=== PATIENT | male | born 1980 | race Caucasian/White ===

== ENCOUNTER → 2017-01-21 | Outpatient (CLI) | payer BC ==
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
== END ==
LOC: SLEEP 13:48
PROVIDERS: ATTEND Internal Medicine
DX: R06.83 Snoring (principal); I10 Essential (primary) hypertension; F17.200 Nicotine dependence, unspecified, uncomplicated; E66.9 Obesity, unspecified; Z68.36 Body mass index [BMI] 36.0-36.9, adult; Z79.899 Other long term (current) drug therapy
CPT/HCPCS: 99211

== ENCOUNTER 2018-05-11 11:12 | Emergency (ER) | payer BC ==
[2018-05-11] MEDS ORDERED: LIDOCAINE 1% (PF) 10MG/ML VIAL SQ STA (11:53)
[2018-05-11] MEDS ORDERED: DIPH,PERTUS(ACELL)TETVAC-LF 0.5 ML VIAL IM ONE (11:53)
--- NOTE | 2018-05-11 12:06 | ED ---
Wound/Laceration HPI - General Chief Complaint: Wound/Laceration Stated Complaint: laceratyion middle finger rt hand Time Seen by Provider: 05/11/18 11:19 Source: patient, RN notes reviewed, old records reviewed Mode of arrival: ambulatory Limitations: no limitations - History of Present Illness Initial Comments: 2-year-old male is referred him to plan of a laceration of the distal tip of his right middle finger. Patient states that he was working at his car and cut the distal portion of the finger involving the nail. Patient states that he has full range of motion of the DIP. Patient states that his tetanus is likely not up-to-date. He reports that he has normal sensation to the distal fingertip. Patient denies any other signs or symptoms or concerns for injury with associated with laceration. - Related Data Home Medications Medication Instructions Recorded Confirmed Lisinopril [Zestril] 10 mg PO DAILY 11/08/14 05/11/18 Multivitamins, Thera [Multivitamin 1 tab PO DAILY 05/11/18 05/11/18 (formulary)] Previous Rx's Medication Instructions Recorded Acetaminophen-Codeine 300-30mg 1 tab PO Q6H PRN 3 Days #12 tablet 05/11/18 [Tylenol w/codeine #3] Cephalexin [Keflex] 500 mg PO Q6H #40 cap 05/11/18 Allergies Allergy/AdvReac Type Severity Reaction Status Date / Time diphenhydramine HCl Allergy Unknown Verified 05/11/18 11:23 [From Benadryl] Review of Systems ROS Statement: Those systems with pertinent positive or pertinent negative responses have been documented in the HPI. ROS Other: All systems not noted in ROS Statement are negative. Past Medical History Past Medical History: Hypertension Additional Past Medical History / Comment(s): [place] kidney stones History of Any Multi-Drug Resistant Organisms: None Reported Past Surgical History: Ear Surgery, Orthopedic Surgery Past Psychological History: No Psychological Hx Reported Smoking Status: Current every day smoker Past Alcohol Use History: Rare Past Drug Use History: None Reported General Exam - General Exam Comments Initial Comments: 38-year-old male. Alert and oriented. No acute distress. Limitations: no limitations General appearance: alert, in no apparent distress Head exam: Present: atraumatic, normocephalic, normal inspection Eye exam: Present: normal appearance, PERRL, EOMI. Absent: scleral icterus, conjunctival injection, periorbital swelling ENT exam: Present: normal exam, mucous membranes moist Neck exam: Present: normal inspection. Absent: tenderness, meningismus, lymphadenopathy Respiratory exam: Present: normal lung sounds bilaterally. Absent: respiratory distress, wheezes, rales, rhonchi, stridor Cardiovascular Exam: Present: regular rate, normal rhythm, normal heart sounds. Absent: systolic murmur, diastolic murmur, rubs, gallop, clicks GI/Abdominal exam: Present: soft, normal bowel sounds. Absent: distended, tenderness, guarding, rebound, rigid Extremities exam: Present: normal inspection, full ROM, normal capillary refill. Absent: tenderness, pedal edema, joint swelling, calf tenderness Right Upper Arm exam: Present: normal inspection, full ROM Elbow exam: Present: normal inspection, full ROM Forearm Wrist exam: Present: normal inspection, full ROM Hand Wrist exam: Present: full ROM. Absent: normal inspection (Patient has a laceration over the sole middle finger involving the nailbed. Laceration is linear.) Neuro motor exam: Present: wrist extension intact, thumb opposition intact, thumb IP flexion intact, thumb adduction intact, fingers 2-5 abduction intact Vascular: Present: normal capillary refill Back exam: Present: normal inspection Neurological exam: Present: alert, oriented X3, CN II-XII intact Psychiatric exam: Present: normal affect, normal mood Skin exam: Present: warm, dry, intact, normal color. Absent: rash Course Vital Signs 05/11/18 11:14 Temperature 98.3 F Pulse Rate 106 H Respiratory 20 Rate Blood Pressure 129/85 O2 Sat by Pulse 99 Oximetry Disposition Clinical Impression: Open fracture, Finger laceration Disposition: HOME SELF-CARE Condition: Good Instructions: Finger Fracture (ED) Additional Instructions: Patient advised to follow-up with outdoor recreation specialist. Take antibiotic as prescribed. Return to emergency department if any alarming signs or symptoms occur. Prescriptions: Acetaminophen-Codeine 300-30mg [Tylenol w/codeine #3] 1 tab PO Q6H PRN 3 Days # 12 tablet PRN Reason: Pain Cephalexin [Keflex] 500 mg PO Q6H #40 cap Is patient prescribed a controlled substance at d/c from ED?: No Referrals: Yang Enciso MD [Primary Care Provider] - 1-2 days Bebo Claros DO [Doctor of Osteopathic Medicine] - 1-2 days Roberto Simons MD [STAFF PHYSICIAN] - 1-2 days Time of Disposition: 13:29
[2018-05-11] MEDS ORDERED: ceFAZolin 1,000 MG VIAL IM STA (12:25)
--- NOTE | 2018-05-11 12:26 | XR ---
Right hand HISTORY: Laceration, trauma and pain 3 views of the right hand There is a possible comminuted tuft fracture with displacement at the third digit of the right hand. No dislocation. Bone mineralization joint spaces are maintained. IMPRESSION: Third digit fracture
[2018-05-11 13:48] VITALS: BP 111/76; PULSE 87; RESP 18; TEMP 97.1
== END 2018-05-11 13:56 | disposition home or self-care (01) ==
LOC: EC 11:12
DX: S62.632B Displaced fracture of distal phalanx of right middle finger, initial encounter for open fracture (principal); I10 Essential (primary) hypertension; F17.200 Nicotine dependence, unspecified, uncomplicated; Z23 Encounter for immunization; Z79.899 Other long term (current) drug therapy; Z88.8 Allergy status to other drugs, medicaments and biological substances; W26.8XXA Contact with other sharp object(s), not elsewhere classified, initial encounter; Y92.89 Other specified places as the place of occurrence of the external cause; Y93.89 Activity, other specified
CPT/HCPCS: 73130; 90715; 99283; 96372; 90471; J0690; J2001

== ENCOUNTER 2021-08-11 09:08 | Emergency (ER) | payer BC ==
[2021-08-11 09:12] VITALS: RESP 22; TEMP 99.3
[2021-08-11] MEDS ORDERED: SODIUM CHLORIDE 0.9% 1,000 ML IV STA (09:26)
--- NOTE | 2021-08-11 09:29 | ED ---
Abdominal Pain HPI - General Chief Complaint: Abdominal Pain Stated Complaint: right side abd pain Time Seen by Provider: 08/11/21 09:12 Source: patient, RN notes reviewed Mode of arrival: ambulatory Limitations: no limitations - History of Present Illness Initial Comments: This a 41-year-old male presented from tumor and right-sided abdominal pain. Patient states started last day or so. Patient states that intensifying. Patient states that slight nausea with severe vomiting diarrhea constipation no dysuria no hematuria states that history kidney stones does not feel similar. He states primarily in the right lower quadrant no other complaints. - Related Data Home Medications Medication Instructions Recorded Confirmed lisinopriL [Zestril] 10 mg PO DAILY 11/08/14 08/11/21 Atorvastatin [Lipitor] 10 mg PO HS 08/11/21 08/11/21 Previous Rx's Medication Instructions Recorded Amoxicillin/Potassium Clav 1 tab PO Q12HR #20 tab 08/11/21 [Augmentin 875-125 Tablet] Ondansetron Odt [Zofran Odt] 4 mg PO Q8HR PRN #10 tab 08/11/21 Allergies Allergy/AdvReac Type Severity Reaction Status Date / Time diphenhydramine HCl Allergy Unknown Verified 08/11/21 09:46 [From Benadryl] Childhood Review of Systems ROS Statement: Those systems with pertinent positive or pertinent negative responses have been documented in the HPI. ROS Other: All systems not noted in ROS Statement are negative. Past Medical History Past Medical History: Hypertension Additional Past Medical History / Comment(s): [place] kidney stones History of Any Multi-Drug Resistant Organisms: None Reported Past Surgical History: Ear Surgery, Orthopedic Surgery Past Psychological History: No Psychological Hx Reported Smoking Status: Current every day smoker Past Alcohol Use History: Rare Past Drug Use History: Marijuana General Exam Limitations: no limitations General appearance: alert, in no apparent distress Head exam: Present: atraumatic, normocephalic, normal inspection Eye exam: Present: normal appearance, PERRL, EOMI. Absent: scleral icterus, conjunctival injection, periorbital swelling ENT exam: Present: normal exam, normal oropharynx, mucous membranes moist Neck exam: Present: normal inspection, full ROM. Absent: tenderness, meningismus, lymphadenopathy Respiratory exam: Present: normal lung sounds bilaterally. Absent: respiratory distress, wheezes, rales, rhonchi, stridor Cardiovascular Exam: Present: normal rhythm, tachycardia, normal heart sounds. Absent: systolic murmur, diastolic murmur, rubs, gallop, clicks GI/Abdominal exam: Present: soft, tenderness, normal bowel sounds. Absent: distended, guarding, rebound, rigid Back exam: Absent: CVA tenderness (R), CVA tenderness (L) Neurological exam: Present: alert Course Vital Signs 08/11/21 09:09 Temperature 99.3 F Pulse Rate 121 H Respiratory 22 Rate Blood Pressure 159/90 O2 Sat by Pulse 98 Oximetry Medical Decision Making - Medical Decision Making Patient CT shows evidence of mild diverticulitis no complications including perforation or abscess. Patient we discharged on clear liquid diet, oral antibiotics and return parameters discussed. - Lab Data Result diagrams: 08/11/21 09:38 08/11/21 09:38 Lab Results 08/11/21 08/11/21 08/11/21 Range/Units 09:38 09:38 09:38 WBC 14.8 H (3.8-10.6) k/uL RBC 4.96 (4.30-5.90) m/uL Hgb 15.9 (13.0-17.5) gm/dL Hct 46.2 (39.0-53.0) % MCV 93.2 (80.0-100.0) fL MCH 32.1 (25.0-35.0) pg MCHC 34.4 (31.0-37.0) g/dL RDW 13.7 (11.5-15.5) % Plt Count 219 (150-450) k/uL MPV 7.7 Neutrophils % 78 % Lymphocytes % 15 % Monocytes % 5 % Eosinophils % 1 % Basophils % 0 % Neutrophils # 11.5 H (1.3-7.7) k/uL Lymphocytes # 2.3 (1.0-4.8) k/uL Monocytes # 0.7 (0-1.0) k/uL Eosinophils # 0.1 (0-0.7) k/uL Basophils # 0.1 (0-0.2) k/uL Sodium 141 (137-145) mmol/L Potassium 4.4 (3.5-5.1) mmol/L Chloride 108 H (98-107) mmol/L Carbon Dioxide 25 (22-30) mmol/L Anion Gap 8 mmol/L BUN 13 (9-20) mg/dL Creatinine 0.90 (0.66-1.25) mg/dL Est GFR (CKD-EPI)AfAm >90 (>60 ml/min/1.73 sqM) Est GFR (CKD-EPI)NonAf >90 (>60 ml/min/1.73 sqM) Glucose 131 H (74-99) mg/dL Plasma Lactic Acid Geraldo 1.7 (0.7-2.0) mmol/L Calcium 9.7 (8.4-10.2) mg/dL Total Bilirubin 0.9 (0.2-1.3) mg/dL AST 31 (17-59) U/L ALT 27 (4-49) U/L Alkaline Phosphatase 132 H (38-126) U/L Total Protein 7.3 (6.3-8.2) g/dL Albumin 4.4 (3.5-5.0) g/dL Amylase 58 (30-110) U/L Lipase 82 (23-300) U/L Urine Color Urine Appearance (Clear) Urine pH (5.0-8.0) Ur Specific [place] (1.001-1.035) Urine Protein (Negative) Urine Glucose (UA) (Negative) Urine Ketones (Negative) Urine Blood (Negative) Urine Nitrite (Negative) Urine Bilirubin (Negative) Urine Urobilinogen (<2.0) mg/dL Ur Leukocyte Esterase (Negative) Urine RBC (0-5) /hpf Urine WBC (0-5) /hpf Ur Squamous Epith Cells (0-4) /hpf Urine Mucus (None) /hpf 08/11/21 Range/Units 09:46 WBC (3.8-10.6) k/uL RBC (4.30-5.90) m/uL Hgb (13.0-17.5) gm/dL Hct (39.0-53.0) % MCV (80.0-100.0) fL MCH (25.0-35.0) pg MCHC (31.0-37.0) g/dL RDW (11.5-15.5) % Plt Count (150-450) k/uL MPV Neutrophils % % Lymphocytes % % Monocytes % % Eosinophils % % Basophils % % Neutrophils # (1.3-7.7) k/uL Lymphocytes # (1.0-4.8) k/uL Monocytes # (0-1.0) k/uL Eosinophils # (0-0.7) k/uL Basophils # (0-0.2) k/uL Sodium (137-145) mmol/L Potassium (3.5-5.1) mmol/L Chloride (98-107) mmol/L Carbon Dioxide (22-30) mmol/L Anion Gap mmol/L BUN (9-20) mg/dL Creatinine (0.66-1.25) mg/dL Est GFR (CKD-EPI)AfAm (>60 ml/min/1.73 sqM) Est GFR (CKD-EPI)NonAf (>60 ml/min/1.73 sqM) Glucose (74-99) mg/dL Plasma Lactic Acid Geraldo (0.7-2.0) mmol/L Calcium (8.4-10.2) mg/dL Total Bilirubin (0.2-1.3) mg/dL AST (17-59) U/L ALT (4-49) U/L Alkaline Phosphatase (38-126) U/L Total Protein (6.3-8.2) g/dL Albumin (3.5-5.0) g/dL Amylase (30-110) U/L Lipase (23-300) U/L Urine Color Yellow Urine Appearance Clear (Clear) Urine pH 6.0 (5.0-8.0) Ur Specific [place] 1.019 (1.001-1.035) Urine Protein 1+ H (Negative) Urine Glucose (UA) Negative (Negative) Urine Ketones Negative (Negative) Urine Blood Small H (Negative) Urine Nitrite Negative (Negative) Urine Bilirubin Negative (Negative) Urine Urobilinogen <2.0 (<2.0) mg/dL Ur Leukocyte Esterase Negative (Negative) Urine RBC 3 (0-5) /hpf Urine WBC 3 (0-5) /hpf Ur Squamous Epith Cells <1 (0-4) /hpf Urine Mucus Few H (None) /hpf Disposition Clinical Impression: Acute diverticulitis Disposition: HOME SELF-CARE Condition: Stable Instructions (If sedation given, give patient instructions): Diverticulitis Diet (ED), Diverticulitis (ED) Additional Instructions: Please return to the Emergency Department if symptoms worsen or any other concerns. Prescriptions: Amoxicillin/Potassium Clav [Augmentin 875-125 Tablet] 1 tab PO Q12HR #20 tab Ondansetron Odt [Zofran Odt] 4 mg PO Q8HR PRN #10 tab PRN Reason: Nausea Is patient prescribed a controlled substance at d/c from ED?: No Referrals: Yang Enciso MD [Primary Care Provider] - 1-2 days Time of Disposition: 11:03
[2021-08-11 10:07] LABS: Appearance,Urine Clear (Clear); Bilirubin,Urine Negative (Negative); Blood,Urine Small (Negative); Color,Urine Yellow; Glucose,Urine (UA) Negative (Negative); Ketones,Urine Negative (Negative); Leukocyte Esterase,Urine Negative (Negative); Mucus,Urine Few /hpf; Nitrite,Urine Negative (Negative); Protein,Urine 1+ (Negative); RBC,Urine 3 /hpf (0-5); Specific Gravity,Urine 1.019 (1.001-1.035); Squamous Epithelial Cell,Urine <1 /hpf (0-4); Urobilinogen,Urine <2.0 mg/dL (<2.0); WBC,Urine 3 /hpf (0-5)
[2021-08-11 10:19] LABS: ALT 27 U/L (4-49); AST 31 U/L (17-59); African American GFR (CKD) >90 (>60 ml/min/1.73 sqM); Albumin 4.4 g/dL (3.5-5.0); Alkaline Phosphatase 132 U/L (38-126); Amylase 58 U/L (30-110); Anion Gap 8 mmol/L; Blood Urea Nitrogen 13 mg/dL (9-20); Calcium 9.7 mg/dL (8.4-10.2); Carbon Dioxide 25 mmol/L (22-30); Chloride 108 mmol/L (98-107); Glucose 131 mg/dL (74-99); Lipase 82 U/L (23-300); Non-African American GFR(CKD) >90 (>60 ml/min/1.73 sqM); Potassium 4.4 mmol/L (3.5-5.1); Sodium 141 mmol/L (137-145); Total Bilirubin 0.9 mg/dL (0.2-1.3); Total Protein 7.3 g/dL (6.3-8.2)
[2021-08-11 10:28] LABS: Basophils # (A) 0.1 k/uL (0-0.2); Basophils % (A) 0 %; Eosinophils # (A) 0.1 k/uL (0-0.7); Eosinophils % (A) 1 %; HCT 46.2 % (39.0-53.0); HGB 15.9 gm/dL (13.0-17.5); Lymphocytes # (A) 2.3 k/uL (1.0-4.8); Lymphocytes % (A) 15 %; MCH 32.1 pg (25.0-35.0); MCHC 34.4 g/dL (31.0-37.0); MCV 93.2 fL (80.0-100.0); Mean Platelet Volume 7.7; Monocytes # (A) 0.7 k/uL (0-1.0); Monocytes % (A) 5 %; Neutrophils # (A) 11.5 k/uL (1.3-7.7); Neutrophils % (A) 78 %; Platelet Count 219 k/uL (150-450); RBC 4.96 m/uL (4.30-5.90); RDW 13.7 % (11.5-15.5); WBC 14.8 k/uL (3.8-10.6)
--- NOTE | 2021-08-11 10:34 | CT ---
EXAMINATION TYPE: CT abdomen pelvis w con DATE OF EXAM: 08/11/2021 COMPARISON: CT February 05, 2015 HISTORY: Right sided abdominal pain CT DLP: 1974 mGycm, Automated Exposure Control for Dose Reduction was Utilized. CONTRAST: CT scan of the abdomen and pelvis is performed without oral but with IV Contrast, patient injected wi th 100 mL of Isovue 300. FINDINGS: LUNG BASES: No significant abnormality is appreciated. LIVER/GB: Liver is heterogeneously hypodense suggesting diffuse fatty infiltration. PANCREAS: No significant abnormality is seen. SPLEEN: No significant abnormality is seen. ADRENALS: No significant abnormality is seen. KIDNEYS: There are scattered benign thin-walled cysts of varying size and shape throughout both kidne ys. Symmetric cortical medullary uptake and excretion without hydronephrosis seen bilaterally BOWEL: Evaluation of wall suboptimal due to lack of enteric contrast. Stomach poorly distended and th e suboptimally evaluated. No suspicious small or large bowel dilatation. Normal appearing appendix po steriorly from the cecum. There is however anterior diverticulum with moderate ill-defined fluid and fat stranding axial image 58 at level of cecum. No free air. No adjacent focal fluid collection or ab scess. Additional scattered colonic diverticula are present. PROSTATE/SEMINAL VESICLES: No gross abnormality seen. LYMPH NODES: No greater than 1cm abdominal or pelvic lymph nodes are appreciated. OSSEOUS STRUCTURES: No significant abnormality is seen. OTHER: Large [place] ventral wall hernia contains fat and mesenteric vessels. Just above the umbili cus axial image 46. Smaller fat-containing umbilical hernia. Both new from prior. IMPRESSION: CT findings consistent with a uncomplicated moderate right-sided acute diverticulitis as detailed above.
[2021-08-11] MEDS ORDERED: ACET/COD 300 MG/30 MG STARTER PACK 6 TAB BTL PO STA (11:03)
[2021-08-11] MEDS ORDERED: cefTRIAXone IN SWFI 1,000 MG/10 ML SYRINGE IVP STA (11:03)
[2021-08-11 11:20] VITALS: BP 148/70; PULSE 98
== END 2021-08-11 11:20 | disposition home or self-care (01) ==
LOC: EC 09:08
DX: K57.32 Diverticulitis of large intestine without perforation or abscess without bleeding (principal); I10 Essential (primary) hypertension; F17.200 Nicotine dependence, unspecified, uncomplicated; F12.90 Cannabis use, unspecified, uncomplicated; Z87.442 Personal history of urinary calculi
CPT/HCPCS: 99284; 96374; 96361; 36415; 80053; 82150; 83605; 83690; 85025; 81001; 74177; J0696; Q9967

== ENCOUNTER 2022-05-24 06:31 | Observation (INO) | payer BC ==
[2022-05-24] MEDS ORDERED: SODIUM CHLORIDE 0.9% 1,000 ML IV STA ×2 (06:42)
[2022-05-24] MEDS ORDERED: PANTOPRAZOLE 40 MG/10 ML VIAL IVP STA (06:42)
[2022-05-24] MEDS ORDERED: HYDROmorphone 1 MG/ML 1 ML SYRINGE IVP STA (06:42)
[2022-05-24 07:08] LABS: Basophils # (A) 0.1 k/uL (0-0.2); Basophils % (A) 1 %; Eosinophils # (A) 0.2 k/uL (0-0.7); Eosinophils % (A) 1 %; HCT 45.7 % (39.0-53.0); HGB 16.3 gm/dL (13.0-17.5); Lymphocytes # (A) 3.1 k/uL (1.0-4.8); Lymphocytes % (A) 24 %; MCH 31.2 pg (25.0-35.0); MCHC 35.6 g/dL (31.0-37.0); MCV 87.7 fL (80.0-100.0); Mean Platelet Volume 8.2; Monocytes # (A) 0.7 k/uL (0-1.0); Monocytes % (A) 5 %; Neutrophils # (A) 8.6 k/uL (1.3-7.7); Neutrophils % (A) 68 %; Platelet Count 242 k/uL (150-450); RBC 5.22 m/uL (4.30-5.90); RDW 13.4 % (11.5-15.5); WBC 12.8 k/uL (3.8-10.6)
[2022-05-24 07:17] LABS: INR 0.8 (<1.2); Partial Thromboplastin Time 22.7 sec (22.0-30.0); Prothrombin Time 9.4 sec (9.0-12.0)
[2022-05-24 07:19] LABS: ALT 24 U/L (4-49); AST 33 U/L (17-59); African American GFR (CKD) >90 (>60 ml/min/1.73 sqM); Albumin 4.7 g/dL (3.5-5.0); Alkaline Phosphatase 131 U/L (38-126); Amylase 57 U/L (30-110); Anion Gap 14 mmol/L; Blood Urea Nitrogen 15 mg/dL (9-20); Calcium 9.1 mg/dL (8.4-10.2); Carbon Dioxide 22 mmol/L (22-30); Chloride 104 mmol/L (98-107); Glucose 129 mg/dL (74-99); Lipase 128 U/L (23-300); Magnesium 1.8 mg/dL (1.6-2.3); Non-African American GFR(CKD) >90 (>60 ml/min/1.73 sqM); Phosphorus 2.7 mg/dL (2.5-4.5); Potassium 3.8 mmol/L (3.5-5.1); Sodium 140 mmol/L (137-145); Total Bilirubin 0.5 mg/dL (0.2-1.3); Total Protein 6.9 g/dL (6.3-8.2)
--- NOTE | 2022-05-24 07:33 | ED ---
Abdominal Pain HPI - General Chief Complaint: Abdominal Pain Stated Complaint: Abd Pain Time Seen by Provider: 05/24/22 06:47 Source: patient, RN notes reviewed Mode of arrival: wheelchair Limitations: no limitations - History of Present Illness Initial Comments: 42-year-old male presents emergency Department chief complaint abdominal pain. Patient states he recently saw Dr. Elias for evaluation of umbilical hernia. Patient states he did not have any pain until last day or so he's developed severe pain, redness of the skin, unable to reduce his hernia. Patient states he is scheduled for surgery on June 10. Patient denies any first breath fev ers chills no dysuria no change in bowel habits. - Related Data Home Medications Medication Instructions Recorded Confirmed lisinopriL [Zestril] 10 mg PO DAILY 11/08/14 08/11/21 Atorvastatin [Lipitor] 10 mg PO HS 08/11/21 08/11/21 Previous Rx's Medication Instructions Recorded Amoxicillin/Potassium Clav 1 tab PO Q12HR #20 tab 08/11/21 [Augmentin 875-125 Tablet] Ondansetron Odt [Zofran Odt] 4 mg PO Q8HR PRN #10 tab 08/11/21 Allergies Allergy/AdvReac Type Severity Reaction Status Date / Time diphenhydramine HCl Allergy Unknown Verified 05/24/22 06:38 [From Benadryl] Childhood Review of Systems ROS Statement: Those systems with pertinent positive or pertinent negative responses have been documented in the HPI. ROS Other: All systems not noted in ROS Statement are negative. Past Medical History Past Medical History: Hypertension Additional Past Medical History / Comment(s): [place] kidney stones History of Any Multi-Drug Resistant Organisms: None Reported Past Surgical History: Ear Surgery, Orthopedic Surgery Past Psychological History: No Psychological Hx Reported Smoking Status: Current every day smoker Past Alcohol Use History: Rare Past Drug Use History: Marijuana General Exam Limitations: no limitations General appearance: alert, in no apparent distress Head exam: Present: atraumatic, normocephalic, normal inspection Neck exam: Present: normal inspection. Absent: tenderness, meningismus, lymphadenopathy Respiratory exam: Present: normal lung sounds bilaterally. Absent: respiratory distress, wheezes, rales, rhonchi, stridor Cardiovascular Exam: Present: regular rate, normal rhythm, normal heart sounds. Absent: systolic murmur, diastolic murmur, rubs, gallop, clicks GI/Abdominal exam: Present: soft, tenderness (Moderate tenderness over the umbilical hernia there is erythematous skin changes noted), normal bowel sounds, hernia. Absent: distended, guarding, rebound, rigid Course Vital Signs 05/24/22 06:36 Temperature 98.9 F Pulse Rate 103 H Respiratory 22 Rate Blood Pressure 165/106 O2 Sat by Pulse 98 Oximetry Medical Decision Making - Medical Decision Making Attempted reduction of the hernia patient was placed in Trendelenburg, ice pack was applied pain meds provided unable to reduce hernia patient had moderate discomfort during procedure. I did discuss case with patient's surgeon Dr. Elias will admit the patient, requests ice packs to be continued, pain control and plan for surgery. - Lab Data Result diagrams: 05/24/22 06:45 05/24/22 06:45 Lab Results 05/24/22 05/24/22 05/24/22 Range/Units 06:45 06:45 06:45 WBC 12.8 H (3.8-10.6) k/uL RBC 5.22 (4.30-5.90) m/uL Hgb 16.3 (13.0-17.5) gm/dL Hct 45.7 (39.0-53.0) % MCV 87.7 (80.0-100.0) fL MCH 31.2 (25.0-35.0) pg MCHC 35.6 (31.0-37.0) g/dL RDW 13.4 (11.5-15.5) % Plt Count 242 (150-450) k/uL MPV 8.2 Neutrophils % 68 % Lymphocytes % 24 % Monocytes % 5 % Eosinophils % 1 % Basophils % 1 % Neutrophils # 8.6 H (1.3-7.7) k/uL Lymphocytes # 3.1 (1.0-4.8) k/uL Monocytes # 0.7 (0-1.0) k/uL Eosinophils # 0.2 (0-0.7) k/uL Basophils # 0.1 (0-0.2) k/uL PT 9.4 (9.0-12.0) sec INR 0.8 (<1.2) APTT 22.7 (22.0-30.0) sec Sodium 140 (137-145) mmol/L Potassium 3.8 (3.5-5.1) mmol/L Chloride 104 (98-107) mmol/L Carbon Dioxide 22 (22-30) mmol/L Anion Gap 14 mmol/L BUN 15 (9-20) mg/dL Creatinine 0.73 (0.66-1.25) mg/dL Est GFR (CKD-EPI)AfAm >90 (>60 ml/min/1.73 sqM) Est GFR (CKD-EPI)NonAf >90 (>60 ml/min/1.73 sqM) Glucose 129 H (74-99) mg/dL Calcium 9.1 (8.4-10.2) mg/dL Phosphorus 2.7 (2.5-4.5) mg/dL Magnesium 1.8 (1.6-2.3) mg/dL Total Bilirubin 0.5 (0.2-1.3) mg/dL AST 33 (17-59) U/L ALT 24 (4-49) U/L Alkaline Phosphatase 131 H (38-126) U/L Total Protein 6.9 (6.3-8.2) g/dL Albumin 4.7 (3.5-5.0) g/dL Amylase 57 (30-110) U/L Lipase 128 (23-300) U/L Disposition Clinical Impression: Incarcerated umbilical hernia Disposition: ADMITTED IP TO THIS [facility] Condition: Fair Referrals: Yang Enciso MD [Primary Care Provider] - 1-2 days Time of Disposition: 07:42
[2022-05-24] MEDS ORDERED: ONDANSETRON 4 MG/2 ML VIAL IVP PRN (07:43)
[2022-05-24] MEDS ORDERED: NALOXONE 0.4 MG/ML 1 ML VIAL IV PRN (07:43)
[2022-05-24] MEDS: SODIUM CHLORIDE 0.9% 1,000 ML IV SCH ×2 (08:13→21:11)
[2022-05-24] MEDS ORDERED: METOCLOPRAMIDE 5 MG/ML 2 ML VIAL IVP STA (09:34)
[2022-05-24] MEDS: HYDROmorphone 0.5 MG/0.5 ML SYRINGE IVP PRN ×2 (09:47→19:05)
--- NOTE | 2022-05-24 14:30 | P.GSHP ---
History of Present Illness H&P Date: 05/24/22 Chief Complaint: Hernia Patient is a 42-year-old man with known epigastric hernia. I'd seen him in the office and had scheduled him for surgery. Due to increasing pain, redness and inability to reduce the hernia he came to the ER. They gave him some pain medication and the hernia was still irreducible. Denies fevers, chills, nausea or vomiting - Review of Systems All systems: negative Past Medical History Past Medical History: Hypertension Additional Past Medical History / Comment(s): KARUK kidney stones History of Any Multi-Drug Resistant Organisms: None Reported Past Surgical History: Ear Surgery, Orthopedic Surgery Past Psychological History: No Psychological Hx Reported Smoking Status: Current every day smoker Past Alcohol Use History: Rare Past Drug Use History: Marijuana Medications and Allergies Home Medications Medication Instructions Recorded Confirmed Type lisinopriL [Zestril] 10 mg PO DAILY 11/08/14 05/24/22 History Atorvastatin [Lipitor] 10 mg PO DAILY 08/11/21 05/24/22 History Allergies Allergy/AdvReac Type Severity Reaction Status Date / Time diphenhydramine HCl Allergy Unknown Verified 05/24/22 11:03 [From Benadryl] Childhood Surgical - Exam Osteopathic Statement: *. No significant issues noted on an osteopathic structural exam other than those noted in the History and Physical/Consult. Vital Signs Temp Pulse Resp BP Pulse Ox 98.9 F 103 H 22 165/106 98 05/24/22 06:36 05/24/22 06:36 05/24/22 06:36 05/24/22 06:36 05/24/22 06:36 - General well developed, well nourished, no distress - Neck trachea midline - Respiratory normal expansion, clear to auscultation - Abdomen Abdomen: soft, tender (Over the epigastric hernia which is irreducible), bowel sounds Results - Labs 05/24/22 06:45 05/24/22 06:45 Abnormal Lab Results - Last 24 Hours (Table) 05/24/22 05/24/22 Range/Units 06:45 06:45 WBC 12.8 H (3.8-10.6) k/uL Neutrophils # 8.6 H (1.3-7.7) k/uL Glucose 129 H (74-99) mg/dL Alkaline Phosphatase 131 H (38-126) U/L Diabetes panel 05/24/22 Range/Units 06:45 Sodium 140 (137-145) mmol/L Potassium 3.8 (3.5-5.1) mmol/L Chloride 104 (98-107) mmol/L Carbon Dioxide 22 (22-30) mmol/L BUN 15 (9-20) mg/dL Creatinine 0.73 (0.66-1.25) mg/dL Glucose 129 H (74-99) mg/dL Calcium 9.1 (8.4-10.2) mg/dL AST 33 (17-59) U/L ALT 24 (4-49) U/L Alkaline Phosphatase 131 H (38-126) U/L Total Protein 6.9 (6.3-8.2) g/dL Albumin 4.7 (3.5-5.0) g/dL Calcium panel 05/24/22 Range/Units 06:45 Calcium 9.1 (8.4-10.2) mg/dL Phosphorus 2.7 (2.5-4.5) mg/dL Albumin 4.7 (3.5-5.0) g/dL Pituitary panel 05/24/22 Range/Units 06:45 Sodium 140 (137-145) mmol/L Potassium 3.8 (3.5-5.1) mmol/L Chloride 104 (98-107) mmol/L Carbon Dioxide 22 (22-30) mmol/L BUN 15 (9-20) mg/dL Creatinine 0.73 (0.66-1.25) mg/dL Glucose 129 H (74-99) mg/dL Calcium 9.1 (8.4-10.2) mg/dL Adrenal panel 05/24/22 Range/Units 06:45 Sodium 140 (137-145) mmol/L Potassium 3.8 (3.5-5.1) mmol/L Chloride 104 (98-107) mmol/L Carbon Dioxide 22 (22-30) mmol/L BUN 15 (9-20) mg/dL Creatinine 0.73 (0.66-1.25) mg/dL Glucose 129 H (74-99) mg/dL Calcium 9.1 (8.4-10.2) mg/dL Total Bilirubin 0.5 (0.2-1.3) mg/dL AST 33 (17-59) U/L ALT 24 (4-49) U/L Alkaline Phosphatase 131 H (38-126) U/L Total Protein 6.9 (6.3-8.2) g/dL Albumin 4.7 (3.5-5.0) g/dL Assessment and Plan (1) Incarcerated epigastric hernia Current Visit: Yes Status: Acute Code(s): K43.6 - OTHER AND UNSP VENTRAL HERNIA WITH OBSTRUCTION, W/O GANGRENE SNOMED Code(s): 780792625 Plan: Epigastric hernia repair. Due to this being incarcerated it will be repaired an open manner. We'll given prophylactic antibiotics along with DVT prophylaxis. If he is doing well. He can be discharged home. The procedure, risks and complications were discussed. Questions were encouraged and answered.
[2022-05-24] MEDS ORDERED: LACTATED RINGERS 1,000 ML IV ONE ×2 (16:50→18:02)
[2022-05-24] MEDS ORDERED: ONDANSETRON 4 MG/2 ML VIAL IVP ONE (17:06)
[2022-05-24] MEDS ORDERED: DEXAMETHASONE SOD PHOSPHATE 4 MG/ML 1 ML VIAL IVP ONE (17:06)
[2022-05-24] MEDS ORDERED: NEOSTIGMINE 1 MG/ML 10 ML VIAL ONE (17:25)
[2022-05-24] MEDS ORDERED: PROPOFOL 10 MG/ML 20 ML VIAL IV ONE (17:25)
[2022-05-24] MEDS ORDERED: MIDAZOLAM 2 MG/2 ML VIAL ONE (17:25)
[2022-05-24] MEDS ORDERED: ROCURONIUM 10 MG/ML (5 ML VIAL) IV ONE (17:25)
[2022-05-24] MEDS ORDERED: GLYCOPYRROLATE 0.2 MG/ML 2 ML VIAL ONE (17:25)
[2022-05-24] MEDS ORDERED: fentaNYL (PF) 50 MCG/ML 2 ML AMP ONE (17:25)
[2022-05-24] MEDS ORDERED: LIDOCAINE 2% INJ 20 MG/ML (2 ML VIAL) ONE (17:25)
[2022-05-24] MEDS ORDERED: LIDOCAINE 4% LTA KIT (4 ML) TOPICAL ONE (17:25)
[2022-05-24] MEDS ORDERED: SUCCINYLCHOLINE CHLORIDE 200 MG/10 ML VIAL IV ONE (17:25)
[2022-05-24] MEDS ORDERED: KETOROLAC 15 MG/ML 1 ML VIAL ONE (17:25)
[2022-05-24] MEDS ORDERED: BUPIVACAINE (PF) 0.25% 30 ML VIAL SQ ONE ×2 (17:46→17:54)
[2022-05-24] MEDS ORDERED: CLINDAMYCIN 900 MG in DEXTROSE 5% IN WATER 50 ML IVPB STA ×2 (17:46)
[2022-05-24] MEDS ORDERED: LIDOCAINE 1%-EPI 1:100,000 20 ML VIAL SQ ONE ×2 (17:46→17:54)
--- NOTE | 2022-05-24 18:53 | P.OP ---
Date of Procedure: 05/24/22 Preoperative Diagnosis: Incarcerated epigastric hernia Postoperative Diagnosis: Incarcerated epigastric hernia Procedure(s) Performed: Epigastric hernia repair Anesthesia: KALANI Surgeon: Manuela Elias Estimated Blood Loss (ml): 75 Pathology: other (Omentum and hernia sac) Condition: stable Disposition: PACU Indications for Procedure: Patient presented with an incarcerated hernia Description of Procedure: Patient is taken to the operative suite where he is prepped and draped in the usual sterile manner under general endotracheal anesthetic. Local was instilled into the skin and subcutaneous tissues. Incision was made over the hernia sac. Hernia sac was dissected free's from subcutaneous tissues. The hernia sac was then entered and there was some areas of necrotic omentum noted. These areas are removed with LigaSure. The fascial incision was extended slightly to allow for reduction of the omentum back into the abdominal cavity. The preperitoneal space was then bluntly developed. There was noted to be a small umbilical hernia defect which was only about 7 or 8 mm in size. There is a little incarcerated preperitoneal fat which was reduced. Once adequate space was developed the redundant hernia sac was resected and the peritoneum was closed with 3-0 Vicryl. The fascial defect was noted to be 5 x 7 cm. An 11 x 14 cm mesh was then placed into the preperitoneal space. It was sutured to proximally and distally to the underlying fascia using 1 Vicryl in the midline. Around the periphery spiral tacks were used to tack the mesh in place through the positioning pocket. The midline hernia defect was then closed in interrupted manner taking bites of the fascia, bite of the mesh in the midline and then the other side of the fascia. The sutures were placed and then they were individually tied down. This gave good reduction of the fascial defect. The subcutaneous tissues were reapproximated using 3-0 Vicryl. The skin was closed with meena. He tolerated the procedure without difficulty and was taken in satisfactory condition. Ring to or personnel, all counts are correct.
[2022-05-24] MEDS ORDERED: HYDROcodone/APAP 5-325MG 1 EACH TAB PO PRN ×2 (18:54)
[2022-05-24] MEDS ORDERED: HYDROmorphone 1 MG/ML 1 ML SYRINGE IVP PRN (18:54)
[2022-05-24] MEDS ORDERED: HYDROmorphone 0.5 MG/0.5 ML SYRINGE IVP ONE (19:00)
[2022-05-24] MEDS: D5-0.45% NACL WITH KCL 20MEQ/L 1,000 ML IV SCH (21:11)
[2022-05-24 22:42] VITALS: RESP 18
[2022-05-24] MEDS: KETOROLAC 15 MG/ML 1 ML VIAL IVP SCH (23:46)
[2022-05-25] MEDS: HYDROmorphone 0.5 MG/0.5 ML SYRINGE IVP PRN (04:36)
[2022-05-25] MEDS: KETOROLAC 15 MG/ML 1 ML VIAL IVP SCH (05:40)
[2022-05-25 08:37] VITALS: BP 120/82; PULSE 87; TEMP 97.7
--- NOTE | 2022-05-25 09:21 | P.DS ---
Providers Date of admission: 05/24/22 08:19 Expected date of discharge: 05/25/22 Attending physician: Manuela Elias Primary care physician: Rohith Enciso - Discharge Diagnosis(es) (1) Incarcerated epigastric hernia Current Visit: Yes Status: Acute Hospital Course: Patient presented with abdominal pain suggestive of acute appendicitis. He was brought in the hospital. He is taken the OR where he undergoes a laparoscopic appendectomy. Postop day he was doing well. Denies any nausea, vomiting or pain. [place] to be stable for discharge Assessment: Appendicitis Patient Condition at Discharge: Fair Plan - Discharge Summary Discharge Rx Participant: No New Discharge Prescriptions: No Action lisinopriL [Zestril] 10 mg PO DAILY Atorvastatin [Lipitor] 10 mg PO DAILY Discharge Medication List lisinopriL [Zestril] 10 mg PO DAILY 11/08/14 [History] Atorvastatin [Lipitor] 10 mg PO DAILY 08/11/21 [History] Follow up Appointment(s)/Referral(s): Yang Enciso MD [Primary Care Provider] - 1-2 days Manuela Elias DO [Family Provider] - 2 Weeks Activity/Diet/Wound Care/Special Instructions: Ice to the incision today. You may remove the dressings and shower tomorrow. Expect some bruising near the bellybutton. Tylenol or Motrin as needed for discomfort. If you develop fever, chills, abdominal pain, nausea, vomiting or concerns about the wounds please call the office. Discharge Disposition: HOME SELF-CARE
[2022-05-25] MEDS: D5-0.45% NACL WITH KCL 20MEQ/L 1,000 ML IV SCH (10:15)
== END 2022-05-25 11:23 | disposition home or self-care (01) ==
LOC: EC 06:31 → 6NMEDSUR 08:19
PROVIDERS: ADMIT Surgery; ATTEND Surgery
DX: K42.0 Umbilical hernia with obstruction, without gangrene (principal); I10 Essential (primary) hypertension; F17.200 Nicotine dependence, unspecified, uncomplicated; Z87.442 Personal history of urinary calculi; Z79.899 Other long term (current) drug therapy
CPT/HCPCS: 96365; 96376; 96361; 96375; 99284; 36415; 80053; 82150; 83690; 83735; 84100; 85025; 85610; 85730; 88302; 49587; G0378 ×2; C1781; J2250; J0330; J1100; J2710; J2765; J0690; J2405; J3010; J1170 ×3; J1885 ×2; J2704; J2001